=== PATIENT | female | born 1980 ===

== ENCOUNTER 2020-06-08 12:00 | Outpatient (CLI) | payer OTHER ==
[2020-06-08] MEDS ORDERED: LACTATED RINGERS 1,000 ML IV ONE (12:05)
[2020-06-08 12:41] LABS: Bacteria,Urine 2+ /HPF (Negative); Bilirubin,Urine NEG (Negative); Blood,Urine NEG (Negative); Color,Urine Yellow (Yellow); Mucus,Urine FEW /HPF; Protein,Urine <15 mg/dL mg/dL (Negative); Urobilinogen,Urine < 2.0 mg/dL (<2.0)
[2020-06-08 13:26] VITALS: BP 134/78
== END 2020-06-08 13:50 | disposition home or self-care (01) ==
LOC: TRG 12:00 → APU 12:01 → TRG 13:50
PROVIDERS: ATTEND Obstetrics & Gynecology
DX: O26.892 Other specified pregnancy related conditions, second trimester (principal); R10.9 Unspecified abdominal pain; Z3A.23 23 weeks gestation of pregnancy
CPT/HCPCS: 59025; 81001

== ENCOUNTER 2020-08-03 09:16 | Outpatient (CLI) | payer OTHER, MEDICAID ==
[2020-08-03] MEDS ORDERED: LACTATED RINGERS 500 ML IV ONE (09:55)
[2020-08-03 10:34] LABS: Bilirubin,Urine NEG (Negative); Blood,Urine NEG (Negative); Color,Urine Yellow (Yellow); Mucus,Urine FEW /HPF; Protein,Urine <15 mg/dL mg/dL (Negative); Urobilinogen,Urine < 2.0 mg/dL (<2.0); WBC,Urine < 1.0 /HPF (0.0-6.0)
[2020-08-03] MEDS ORDERED: LACTATED RINGERS 1,000 ML IV ONE (10:42)
[2020-08-03 12:26] VITALS: BP 107/58
== END 2020-08-03 12:44 | disposition home or self-care (01) ==
LOC: TRG 09:16 → APU 09:17 → TRG 12:44
PROVIDERS: ATTEND Obstetrics & Gynecology
DX: O26.893 Other specified pregnancy related conditions, third trimester (principal); R10.11 Right upper quadrant pain; R10.2 Pelvic and perineal pain; R60.0 Localized edema; O47.03 False labor before 37 completed weeks of gestation, third trimester; O09.523 Supervision of elderly multigravida, third trimester; Z3A.30 30 weeks gestation of pregnancy
CPT/HCPCS: 36415; 59025; 81001; 82731; 96360; J7120; 96361

== ENCOUNTER 2020-09-17 04:26 | Inpatient (IN) | payer MEDICAID, OTHER ==
[2020-09-17] MEDS ORDERED: LIDOCAINE (2%) 20 MG/1 ML VIAL 20 ML MDV INFILTRATI ONE (06:37)
[2020-09-17] MEDS ORDERED: TERBUTALINE 1 MG/1 ML INJ SUB-Q PRN (06:37)
[2020-09-17] MEDS ORDERED: ePHEDrine SULFATE 50 MG/1 ML INJ IV PRN (06:37)
[2020-09-17] MEDS ORDERED: MINERAL OIL 30 ML ORAL LIQD PO PRN (06:37)
[2020-09-17] MEDS ORDERED: LACTATED RINGERS 1,000 ML IV SCH (06:45)
[2020-09-17 06:54] LABS: Mean Corpuscular HGB Conc 37 % (30-34); Mean Corpuscular Volume 87 fl (79-97); Platelet Count 270 K/mm3 (140-440); Red Blood Count 4.11 M/mm3 (3.65-5.03); Red Cell Distribution Width 13.9 % (13.2-15.2)
[2020-09-17 06:59] LABS: Hematocrit 35.7 % (30.3-42.9); Hemoglobin 13.3 gm/dl (10.1-14.3)
[2020-09-17] MEDS ORDERED: AMPICILLIN/NS 2 GM/100 ML 2 GM/100 ML BAG IV ONE (06:59)
[2020-09-17] MEDS ORDERED: OXYTOCIN DRIP 30 UNITS/500 ML BAG IV SCH (07:00)
[2020-09-17] MEDS ORDERED: metroNIDAZOLE 500 MG TAB PO NR (07:00)
--- NOTE | 2020-09-17 08:24 | History and Physical Report ---
History of Present Illness Date of examination: 09/17/20 Date of admission: 09/17/20 07:01 Chief complaint: Leaking of fluids since 0 this am History of present illness: 40 yo, @ 36.4 wks, transferred care to [facility] at 30.4 weeks gestation. Her has been complicated by AMA, GDM and Trichomonas (treated on 09/10/20). Presents to [facility] with reports of leaking fluid since 399 this am. Reports +FM. Denies VB. Labs: A+, antibody negative; rubella immune; VDRL negative; HBsAg negtive; HIV negative; PAP smear normal; GC/ Chlamydia negative; 1 hr gtt - 161; 3 hr gtt - 92, 2098, 160, 129; GBS negative. Past History Past Medical History: no pertinent history Past Surgical History: no surgical history Family/Genetic History: none Social history: , full code. denies: smoking, alcohol abuse, prescription drug abuse, IV drug use - Obstetrical History Expected Date of Delivery: 10/11/20 Actual Gestation: 36 Week(s) 4 Day(s) : 7 Para: 4 Hx # Term Pregnancies: 2 Number of Pregnancies: 2 Spontaneous Abortions: 0 Induced : 2 Number of Living Children: 4 #1 Infant Gender: Male year: 1,999 Method of Delivery: Vaginal Complications: none #2 Gender: Female year: 2,001 Method of Delivery: Vaginal Complications: none #3 Gender: Female year: 2,007 Method of Delivery: Vaginal Complications: other (PTD) #4 Gender: Male year: 2,008 Method of Delivery: Vaginal Complications: other (PTD) Medications and Allergies Allergies Allergy/AdvReac Type Severity Reaction Status Date / Time No Known Allergies Allergy Verified 08/03/20 10:07 Home Medications Medication Instructions Recorded Confirmed Last Taken Type Vitamin 1 tab PO DAILY 08/03/20 08/03/20 08/02/20 History Active Meds: Active Medications Ephedrine Sulfate (Ephedrine Sulfate 50 Mg/1 Ml Inj) 10 mg IV Q2M PRN PRN Reason: Hypotension Lactated Ringer's (Lactated Ringers) 1,000 mls @ 125 mls/hr IV DIRECT YOLA Oxytocin/Sodium Chloride (Pitocin/Ns 30 Unit/500ml) 30 units in 500 mls @ 40 mls/hr IV TITR YOLA; Protocol Metronidazole (Metronidazole 500 Mg Tab) 2,000 mg PO ONCE NR; Protocol Stop: 09/17/20 10:00 Last Admin: 09/17/20 08:12 Dose: 2,000 mg Documented by: Mineral Oil (Mineral Oil 30 Ml Oral Liqd) 30 ml PO QHS PRN PRN Reason: Constipation Terbutaline Sulfate (Terbutaline 1 Mg/1 Ml Inj) 0.25 mg SUB-Q ONCE PRN PRN Reason: Hyperstimulation/Hypertonicity Review of Systems All systems: negative Genitourinary: leakage of fluid - Vital Signs Vital signs: Vital Signs Pulse BP 93 H 122/66 09/17/20 05:05 09/17/20 05:05 Temp Pulse Resp BP Pulse Ox 98.7 F 93 H 18 122/66 09/17/20 07:51 09/17/20 07:51 09/17/20 07:51 09/17/20 05:05 - Physical Exam Breasts: Positive: normal Cardiovascular: Regular rate Lungs: Positive: Normal air movement Abdomen: Positive: other (gravid) Genitourinary (Female): Positive: normal external genitalia, normal perenium Uterus: Positive: enlarged (S=D) Extremities: Positive: edema Deep Tendon Reflex Grade: Normal +2 - Obstetrical FHR: category 1 Uterine Contraction Monitor Mode: External Cervical Dilatation: 3 (vetex) Cervical Effacement Percentage: 70 station: -2 Uterine Contraction Frequency (min): 2-4 Uterine Contraction Pattern: Irregular Uterine Tone Measurement Phase: Resting Uterine Contraction Intensity: Mild Results Result Diagrams: 09/17/20 06:35 Abnormal lab results 09/17/20 Range/Units 06:35 WBC 12.5 H (4.5-11.0) K/mm3 MCHC 37 H (30-34) % All other labs normal. Assessment and Plan - Patient Problems (1) SROM (spontaneous rupture of membranes) Current Visit: Yes Status: Acute Plan to address problem: Admit to L&D Initiate Pitocin if ctx irregular Pain meds as desired Anticipate (2) AMA (advanced maternal age) multigravida 35+ Current Visit: Yes Status: Acute (3) GDM (gestational diabetes mellitus) Current Visit: Yes Status: Acute Plan to address problem: Check blood glucose levels per orders
[2020-09-17] MEDS ORDERED: fentaNYL 100 MCG/2 ML INJ IV PRN (09:52)
[2020-09-17] MEDS ORDERED: BUTORPHANOL 2 MG/1 ML INJ IV PRN (09:52)
[2020-09-17] MEDS ORDERED: AMPICILLIN/NS 1 GM/50 ML 1 GM/50 ML BAG IV SCH (10:00)
[2020-09-17] MEDS ORDERED: OXYTOCIN DRIP 30 UNITS/500 ML BAG IV ONE (11:00)
[2020-09-17] MEDS ORDERED: WITCH HAZEL/ GLYCERIN PAD TP PRN (15:25)
[2020-09-17] MEDS ORDERED: LANOLIN/ZINC/DIMETHICONE (LANSINOH) 7 GM TP PRN (15:25)
[2020-09-17] MEDS ORDERED: diphenhydrAMINE 25 MG CAP PO PRN (15:25)
[2020-09-17] MEDS ORDERED: oxyCODONE /ACETAMINOPHEN 5-325MG TAB PO PRN (15:25)
[2020-09-17] MEDS ORDERED: ONDANSETRON 4 MG/2 ML INJ IV PRN (15:25)
[2020-09-17] MEDS ORDERED: PROMETHAZINE 25 MG TAB PO PRN (15:25)
[2020-09-17] MEDS ORDERED: MAGNESIUM HYDROXIDE (MOM) ORAL LIQD UDC PO PRN (15:25)
--- NOTE | 2020-09-17 15:32 | Procedure Note ---
OB Delivery Note - Delivery Date of Delivery: 09/17/20 (6884) Surgeon: SAHWN GODOY (CNM) Estimated blood loss: 300cc - Vaginal Delivery presentation: vertex Delivery position: OA (HOLLY) Delivery induction: none Delivery augmentation: rupture of membranes (SROM @ 0400 today) Delivery monitor: external FHT, external uterine Route of delivery: Delivery placenta: spontaneous (1511, leon) Delivery cord: 3 umbilical vessels Episiotomy: none Delivery laceration: 1st degree (perineum, no repaire required) Anesthesia: none Delivery comments: of viable, quiet female infant, placed directly on maternal abdomen. Spontaneous cry with manual stimulation and drying. Cord double clamped, cut by FOB after cessation of pulsation. Placenta spontaneously delivered, carolyn, disposed per hospital policy. Uterus firm @ U-2, hemostasis maintained. Perineum with 1st degree laceration, no repair required, hemostasis maintained. Mother and baby safe, stable and left in care of RN. - Infant A at 1 minute: 7 at 5 minutes: 9 Gender: Female (Weight: 3180 gms (7 lbs) 18 inches)
[2020-09-17] MEDS: IBUPROFEN 600 MG TAB PO SCH (18:51)
[2020-09-18 06:45] LABS: Hematocrit 31.5 % (30.3-42.9); Hemoglobin 11.7 gm/dl (10.1-14.3)
--- NOTE | 2020-09-18 08:00 | Progress Note ---
Assessment and Plan - Patient Problems (1) GDM (gestational diabetes mellitus) Current Visit: Yes Status: Acute Plan to address problem: patient doing well discharge home Subjective - Subjective Date of service: 09/18/20 Interval history: Patient without complaints. Pain well controlled. Patient reports: appetite normal, voiding normally, pain well controlled : doing well Objective - Vital Signs Latest vital signs: Vital Signs Temp Pulse Resp BP BP Pulse Ox 09/18/20 00:17 98.6 F 91 H 20 103/61 90 09/17/20 20:07 98.8 F 93 H 20 122/61 94 09/17/20 18:15 98.5 F 102 H 20 131/69 09/17/20 17:34 51 L 84 09/17/20 17:30 62 82 L 09/17/20 17:25 46 L 82 L 09/17/20 17:20 45 L 82 L 09/17/20 17:15 78 83 L 09/17/20 17:10 49 L 83 L 09/17/20 17:05 56 L 83 L 09/17/20 17:00 60 83 L 09/17/20 16:55 209 H 83 L 09/17/20 16:50 181 H 83 L 09/17/20 16:45 57 L 83 L 09/17/20 16:43 81 L 09/17/20 16:38 66 83 L 09/17/20 16:33 68 83 L 09/17/20 16:32 83 L 09/17/20 16:28 49 L 82 L 09/17/20 16:26 81 L 09/17/20 16:19 98.7 F 105 H 90 09/17/20 16:16 88 99 09/17/20 16:14 93 H 132/62 09/17/20 16:11 87 99 09/17/20 16:06 87 98 09/17/20 16:01 101 H 99 09/17/20 15:59 94 H 143/67 09/17/20 15:56 97 H 100 09/17/20 15:51 86 98 09/17/20 15:46 94 H 100 09/17/20 15:41 99 H 100 09/17/20 15:36 91 H 100 09/17/20 15:31 89 100 09/17/20 15:29 94 H 141/66 09/17/20 15:26 94 H 100 09/17/20 15:21 95 H 99 09/17/20 15:16 95 H 99 09/17/20 15:15 93 H 134/60 09/17/20 14:20 97.7 F 88 09/17/20 13:48 89 145/77 09/17/20 11:34 90 132/81 09/17/20 10:32 98.6 F 88 128/65 128/65 Intake and Output 09/17/20 09/18/20 09/18/20 22:59 06:59 14:59 Intake Total 120 360 Output Total 900 Balance -780 360 Intake: Oral 120 Intake, Free Water 360 Output: Urine 900 Indwelling Catheter 0 Void 900 Other: Total, Intake Amount 120 Total, Output Amount 400 # Voids Void 1 - Labs Labs: Abnormal lab results 09/17/20 Range/Units 14:40 POC Glucose 111 H (70-105) mg/dL
--- NOTE | 2020-09-18 08:01 | Discharge Summary ---
Providers - Providers Date of Admission: 09/17/20 07:01 Date of discharge: 09/18/20 Attending physician: EDUARDO REINOSO Primary care physician: EDUARDO REINOSO Hospitalization Reason for admission: rupture of membranes Delivery: Discharge diagnosis: IUP at term delivered Hospital course: Patient admitted with SROM. Had a . uncomplicated Condition at discharge: Good Disposition: DC- TO HOME OR SELFCARE - Discharge Diagnoses (1) GDM (gestational diabetes mellitus) Status: Acute Plan - Discharge Medications Prescriptions: Ibuprofen [Motrin] 800 mg PO Q8HR PRN #30 tablet PRN Reason: Pain , Severe (7-10) HYDROcodone/APAP 5-325 [[place] 5/325] 1 each PO Q6HR PRN #15 tablet PRN Reason: Pain - Provider Discharge Summary Activity: no sex for 6 weeks, no heavy lifting 4 weeks, no strenuous exercise Diet: routine Instructions: routine Additional instructions: [] Smoking cessation referral if applicable(refer to patient education folder for contact #) [] Refer to [facility] Booklet Call your doctor immediately for: * Fever > 100.5 * Heavy vaginal bleeding ( >1 pad per hour) * Severe persistent headache * Shortness of breath * Reddened, hot, painful area to leg or breast * schedule visit in 4 weeks - Follow up plan
[2020-09-18] MEDS: PRENATAL VIT27-FE FUMARATE-FOLIC ACID VIT TAB PO SCH (09:54)
[2020-09-18] MEDS: IBUPROFEN 600 MG TAB PO SCH ×2 (12:18→18:21)
[2020-09-19 09:27] VITALS: BP 123/71
[2020-09-19] MEDS: IBUPROFEN 600 MG TAB PO SCH (10:24)
[2020-09-19] MEDS: PRENATAL VIT27-FE FUMARATE-FOLIC ACID VIT TAB PO SCH (10:24)
== END 2020-09-19 15:05 | disposition home or self-care (01) | DRG 775 ==
LOC: TRG 04:26 → APU 04:35 → LD 07:01 → TRG 07:01 → OB 17:48
PROVIDERS: ADMIT Obstetrics & Gynecology; ATTEND Obstetrics & Gynecology
PROC: 10E0XZZ Delivery of Products of Conception, External Approach (ICD-10-PCS; principal; 2020-09-17)
DX: O24.429 Gestational diabetes mellitus in childbirth, unspecified control (principal); Z3A.36 36 weeks gestation of pregnancy; Z37.0 Single live birth; O09.523 Supervision of elderly multigravida, third trimester; O70.0 First degree perineal laceration during delivery; Z20.822 Contact with and (suspected) exposure to COVID-19
CPT/HCPCS: 36415; 82962; 85014; 85018; 85027; 86850; 86900; 86901; G0378; J0595; J2590; J3010; J7120; U0003